=== PATIENT | male | born 1990 | race Caucasian/White ===

== ENCOUNTER 2018-03-29 18:02 | Emergency (ER) | payer BC ==
[2018-03-29 18:59] VITALS: BP 128/85; PULSE 67; RESP 18; TEMP 98.6; O2SAT 96
[2018-03-29] MEDS ORDERED: Tdap Vaccine 0.5 ml Vial (10-64 yrs) IM ONE ×2 (19:17→20:00)
[2018-03-29] MEDS ORDERED: Lidocaine 2% Inj (20ml) INFIL ONE (19:18)
[2018-03-29] MEDS ORDERED: Lidocaine 2% MPF (5 ml) Inj ONE (19:22)
--- NOTE | 2018-03-29 19:27 | C.PDOC ---
Chief Complaint (Nursing): Abnormal Skin Integrity Past Medical History Vital Signs: Last Vital Signs Temp 98.6 F 03/29/18 18:04 Pulse 67 03/29/18 18:04 Resp 18 03/29/18 18:04 BP 128/85 03/29/18 18:04 Pulse Ox 96 03/29/18 18:04 - Social History Hx Alcohol Use: Yes Hx Substance Use: No - Immunization History Hx Tetanus Toxoid Vaccination: Yes Hx Influenza Vaccination: No Hx Pneumococcal Vaccination: No ED Course And Treatment O2 Sat by Pulse Oximetry: 96 Disposition - Disposition
--- NOTE | 2018-03-29 19:29 | C.PDOC ---
History Of Present Illness 27 y/o male, with no PMHx, presents to ER complaining of left thumb laceration s/p injury with kitchen knife 2 hours ago. Patient states he was cutting salmon when the knife slipped and cut into the distal phalanx of his left thumb. Patient was able to control the bleeding with pressure. States he is not on blood thinners. He is able to make a full fist without difficulty and can touch his pinky to his thumb. Unsure of last tetanus shot. Denies numbness, tingling, or lacerations elsewhere. Chief Complaint (Nursing): Abnormal Skin Integrity History Per: Patient History/Exam Limitations: no limitations Onset/Duration Of Symptoms: Hrs Current Symptoms Are (Timing): Still Present Past Medical History Reviewed: Historical Data, Nursing Documentation, Vital Signs Vital Signs: Last Vital Signs Temp 98.6 F 03/29/18 18:04 Pulse 67 03/29/18 18:04 Resp 18 03/29/18 18:04 BP 128/85 03/29/18 18:04 Pulse Ox 96 03/29/18 18:04 - Medical History PMH: No Chronic Diseases Family History: States: No Known Family Hx - Social History Hx Alcohol Use: Yes Hx Substance Use: No - Immunization History Hx Tetanus Toxoid Vaccination: No (unsure of last tetanus) Hx Influenza Vaccination: No Hx Pneumococcal Vaccination: No Review Of Systems Except As Marked, All Systems Reviewed And Found Negative. Constitutional: Negative for: Fever, Chills Eyes: Negative for: Vision Change Cardiovascular: Negative for: Chest Pain Respiratory: Negative for: Shortness of Breath Gastrointestinal: Negative for: Nausea, Vomiting Skin: Positive for: Other (Laceration on L thumb without nail involvement) Neurological: Negative for: Weakness, Numbness, Other (numbness, paresthesias) Physical Exam - Physical Exam Appears: Non-toxic, No Acute Distress Skin: Warm, Dry, Other (1.5 cm linear laceration to left thumb distal phalanx with no nail involvement; no swelling, no redness, and no active bleeding; neurovascularly intact) Head: Atraumatic, Normacephalic Eye(s): bilateral: Normal Inspection, PERRL, EOMI Oral Mucosa: Moist Neck: Normal, Normal ROM Cardiovascular: Rhythm Regular, No Murmur Respiratory: Normal Breath Sounds, No Rales, No Rhonchi, No Wheezing Extremity: Normal ROM, Tenderness (left medial thumb), Capillary Refill (less than 2 seconds), No Deformity, No Swelling, Other (1.5 cm linear laceration to left thumb distal phalanx with no nail involvement; no swelling, no redness, and no active bleeding; neurovascularly intact) Extremity: Right: Atraumatic, Normal Color And Temperature, Bilateral: Normal ROM Pulses: Left Radial: Normal, Right Radial: Normal Neurological/Psych: Oriented x3, Normal Speech, Normal Cognition, Normal Cranial Nerves, Normal Motor, Normal Sensation Gait: Steady ED Course And Treatment O2 Sat by Pulse Oximetry: 96 (RA) Pulse Ox Interpretation: Normal Laceration - Laceration Repair Left Thumb Wound Length (In cm): 1.5 Description Of Wound: Linear Wound Cleansed With: Betadine, Sterile Saline Anesthesia: Lidocaine 2% Wound Examination: Irrigated With Saline, No FB With Wound Exploration, No Tendon Injury With Wound Exploration Wound Closure: Suture (2) Suture Technique And Material Used: Interrupted, Nylon (5-0) Wound Complexity: Simple Medical Decision Making Medical Decision Making: Initial plan: --Left Hand X-Ray --Tetanus --Suture repair Patient was offered pain medications but refused. Left Hand Xray: normal, no fracture or FB visualized. Read by me. Laceration repaired with 2 simple interrupted 5-0 nylon sutures, bleeding controlled. Sterile procedure observed. Pt tolerated wound repair procedure well without complication. Wound dressed and covered, bacitracin applied. Discussed with pt the importance of followup for suture removal and wound check. Pt understands and agrees with plan, comfortable with discharge home. Pt stable for discharge. Impression: Laceration, left thumb Plan: Return in 7 days for suture removal ibuprofen/tylenol for pain keep wound clean, dry, covered. no soaking. Followup with primary doctor within 2 days Return to ER for new or worsening symptoms Disposition - Disposition Referrals: [facility] [Outside] Disposition: HOME/ ROUTINE Disposition Time: 19:20 Condition: IMPROVED Additional Instructions: Return in 7 days for suture removal ibuprofen/tylenol for pain keep wound clean, dry, covered. no soaking. Followup with primary doctor within 2 days Return to ER for new or worsening symptoms Forms: [employer] (Austrian) - Clinical Impression Clinical Impression: Laceration - PA / [employer] / Resident Statement MD/DO has reviewed & agrees with the documentation as recorded. - Scribe Statement The provider has reviewed the documentation as recorded by the Scribe Tari Lock All medical record entries made by the Scribe were at my direction and personally dictated by me. I have reviewed the chart and agree that the record accurately reflects my personal performance of the history, physical exam, medical decision making, and the department course for this patient. I have also personally directed, reviewed, and agree with the discharge instructions and disposition.
--- NOTE | 2018-03-30 10:38 | RAD ---
Date of service: 03/29/2018 PROCEDURE: Left Thumb radiographs. HISTORY: r/o fracture, laceration COMPARISON: None. TECHNIQUE: AP radiograph of the left hand, as well as spot oblique and lateral images of thumb were obtained. FINDINGS: LEFT THUMB: Unremarkable left 1st digit without acute displaced fracture identified. Remainder of the left hand (as seen on the AP view) grossly unremarkable. JOINTS: No dislocation. SOFT TISSUES: Unremarkable. No evidence of radiopaque foreign body. OTHER FINDINGS: None. IMPRESSION: Unremarkable left thumb radiographs.
== END 2018-03-29 20:05 | disposition home or self-care (01) ==
LOC: C.ER 18:02
DX: S61.012A Laceration without foreign body of left thumb without damage to nail, initial encounter (principal); W26.0XXA Contact with knife, initial encounter; Y93.G1 Activity, food preparation and clean up; Y92.89 Other specified places as the place of occurrence of the external cause; Z23 Encounter for immunization

== ENCOUNTER 2018-04-06 17:54 | Emergency (ER) | payer BC ==
[2018-04-06 18:10] VITALS: BMI 25.3
[2018-04-06 18:11] VITALS: BP 127/82; PULSE 63; RESP 18; TEMP 98.7; O2SAT 98
--- NOTE | 2018-04-06 18:33 | C.PDOC ---
History Of Present Illness 27 y/o male presents to the ED for suture removal from left thumb. Sutures were placed on 03/29. Patient reports cleaning the wound twice daily. States it has been healing well. Denies fever, chills, wound discharge, or redness. Time Seen by Provider: 04/06/18 18:32 Chief Complaint (Nursing): Suture/Staple Removal History Per: Patient History/Exam Limitations: no limitations Onset/Duration Of Symptoms: Days Ago Current Symptoms Are (Timing): Still Present Past Medical History Reviewed: Historical Data, Nursing Documentation, Vital Signs Vital Signs: Last Vital Signs Temp 98.7 F 04/06/18 18:10 Pulse 63 04/06/18 18:10 Resp 18 04/06/18 18:10 BP 127/82 04/06/18 18:10 Pulse Ox 98 04/06/18 18:10 - Medical History PMH: No Chronic Diseases Surgical History: No Surg Hx Family History: States: No Known Family Hx - Social History Hx Alcohol Use: Yes Hx Substance Use: No - Immunization History Hx Tetanus Toxoid Vaccination: Yes (unsure of last tetanus) Hx Influenza Vaccination: No Hx Pneumococcal Vaccination: No Review Of Systems Skin: Positive for: Lesions (healing laceration). Negative for: Rash Neurological: Negative for: Weakness, Numbness, Incoordination Physical Exam - Physical Exam Appears: Non-toxic, No Acute Distress Skin: Warm, Dry, Other (2 sutures to left thumb, intact; laceration healed, no signs or symptoms of infection) Chest: Symmetrical Respiratory: No Accessory Muscle Use, Other (NARD) Extremity: Bilateral: Normal Color And Temperature, Normal ROM Pulses: Left Radial: Normal, Right Radial: Normal Neurological/Psych: Oriented x3, Normal Speech, Normal Motor, Normal Sensation ED Course And Treatment O2 Sat by Pulse Oximetry: 98 (RA) Pulse Ox Interpretation: Normal Medical Decision Making Medical Decision Making: Procedure: 2 sutures removed using scissors without difficulty, tolerated well by patient. Disposition Counseled Patient/Family Regarding: Diagnosis, Need For Followup - Disposition Referrals: [facility] [Outside] [facility] [place] [Outside] Disposition: HOME/ ROUTINE Disposition Time: 18:33 Condition: IMPROVED Instructions: Stitches Removal Forms: [employer] (Hebrew) - Clinical Impression Clinical Impression: Removal of suture - Scribe Statement The provider has reviewed the documentation as recorded by the Scribe (Mi Norwood) Provider Attestation: All medical record entries made by the Scribe were at my direction and personally dictated by me. I have reviewed the chart and agree that the record accurately reflects my personal performance of the history, physical exam, medical decision making, and the department course for this patient. I have also personally directed, reviewed, and agree with the discharge instructions and disposition.
== END 2018-04-06 18:40 | disposition home or self-care (01) ==
LOC: C.ER 17:54
DX: Z48.02 Encounter for removal of sutures (principal)